=== PATIENT | female | born 1985 | race Two or more races ===

== ENCOUNTER 2019-07-08 11:24 | Emergency (ER) | payer OTHER, SELFPAY ==
[~2019-07-08] VITALS: Ht 167.6 cm; Wt 76.4 kg
[2019-07-08] MEDS ORDERED: DAYT1CAP9 PO (12:02)
[2019-07-08] MEDS ORDERED: CELE100C PO (12:05)
[2019-07-08] MEDS ORDERED: ALL10TAB29 PO (12:05)
[2019-07-08 12:39] LABS: INFLUENZA A AMPLIFICATION NEGATIVE (NEGATIVE); INFLUENZA B AMPLIFICATION NEGATIVE (NEGATIVE)
[2019-07-08 13:34] LABS: BASO % 0.6 % (0.0-1.0); HEMATOCRIT 39.4 % (36.0-47.0); HEMOGLOBIN 13.1 g/dl (12.0-15.5); LYMPH # 1.6 10^3/uL (1.5-5.0); LYMPH % 23.5 % (24.0-44.0); MEAN CORPUSCULAR HGB CONC 33.2 g/dl (32.0-36.5); MEAN CORPUSCULAR VOLUME 87.4 fl (80.0-96.0); MONO # 0.8 10^3/uL (0.0-0.8); MONO % 11.4 % (0.0-5.0); NEUTROPHILS # 4.2 10^3/uL (1.5-8.5); NEUTROPHILS % 64.3 % (36.0-66.0); PLATELET COUNT, AUTOMATED 313 10^3/uL (150-450); RED BLOOD COUNT 4.51 10^6/uL (4.00-5.40); WHITE BLOOD COUNT 6.6 10^3/uL (4.0-10.0)
--- NOTE | 2019-07-08 13:42 | REP ---
Two-view chest: 07/08/2019. Indication: Cough. Chest pain. Comparison: None. Findings: The lungs are clear. There is no pleural effusion or pneumothorax. The cardiomediastinal silhouette is unremarkable. Impression: There is no acute cardiopulmonary process. Electronically Signed by Rusty Harris DO 07/08/2019 01:34 P
[2019-07-08 14:04] LABS: BLOOD UREA NITROGEN 9 MG/DL (7-18); CARBON DIOXIDE LEVEL 28 MEQ/L (21-32); CHLORIDE LEVEL 104 MEQ/L (98-107); CREATININE FOR GFR 0.98 MG/DL (0.55-1.30); GLOMERULAR FILTRATION RATE > 60.0 (>60); GLUCOSE, FASTING 72 MG/DL (70-100); POTASSIUM SERUM 3.7 MEQ/L (3.5-5.1); SODIUM LEVEL 139 MEQ/L (136-145)
[2019-07-08 14:09] LABS: CK-MB VALUE MASS < 1.0 NG/ML (<3.6); CPK CREATINE PHOSPHOKINASE 457 U/L (26-192); MB/CK RELATIVE INDEX 0.22 (< OR =4); TROPONIN I < 0.02 NG/ML (< 0.10)
[2019-07-08 14:43] VITALS: BP 136/104
--- NOTE | 2019-07-08 23:23 | ECGEPIP ---
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
== END 2019-07-08 14:53 | disposition home or self-care (01) ==
LOC: M ED 11:24
DX: I10 Essential (primary) hypertension (principal); J06.9 Acute upper respiratory infection, unspecified; Z79.899 Other long term (current) drug therapy; Z88.5 Allergy status to narcotic agent; Z88.8 Allergy status to other drugs, medicaments and biological substances; Z91.018 Allergy to other foods; Z87.891 Personal history of nicotine dependence

== ENCOUNTER → 2019-08-14 | Outpatient (CLI) | payer OTHER ==
[~2019-08-14] MED LIST: ALL10TAB29 PO; CELE100C PO; DAYT1CAP9 PO
--- NOTE | 2019-08-15 10:25 | REP ---
Left wrist series: Four views. History: Injury. Findings: Four views of the left wrist demonstrate normal bones, joints, and soft tissues. No fracture or subluxation is seen. Impression: Negative left wrist radiographs. Electronically Signed by Torres Conteh MD 08/14/2019 05:53 P
== END ==
LOC: M LRY 17:32
PROVIDERS: ATTEND Nurse Practitioner Family
DX: S69.92XA Unspecified injury of left wrist, hand and finger(s), initial encounter (principal); Y92.9 Unspecified place or not applicable; Y93.9 Activity, unspecified; Y99.9 Unspecified external cause status
CPT/HCPCS: 73110; G0463

== ENCOUNTER → 2020-01-28 | Outpatient (CLI) | payer OTHER ==
--- NOTE | 2020-01-28 13:20 | REP ---
FOOT: REASON: Pain after trauma, particularly laterally involving the midfoot region. FINDINGS: The joint spaces are symmetric and relatively well maintained. There is no evidence of acute fracture or destructive osseous lesion. IMPRESSION: Negative. Electronically Signed by Adryan Fuller DO 01/28/2020 01:30 P
--- NOTE | 2020-01-28 13:22 | REP ---
ANKLE: REASON: Lateral pain after trauma. COMPARISON: No priors. FINDINGS: No acute fracture or destructive osseous lesion. The mortise is intact. Electronically Signed by Adryan Fuller DO 01/28/2020 01:30 P
== END ==
LOC: M LRY 11:17
PROVIDERS: ATTEND Physician Assistant
DX: S99.922A Unspecified injury of left foot, initial encounter (principal); S99.212A Salter-Harris Type I physeal fracture of phalanx of left toe, initial encounter for closed fracture; X58.XXXA Exposure to other specified factors, initial encounter; Y92.89 Other specified places as the place of occurrence of the external cause; Y93.9 Activity, unspecified; Y99.9 Unspecified external cause status
CPT/HCPCS: 73610; 73630; G0463